=== PATIENT | female | born 2000 | race Caucasian/White ===

== ENCOUNTER 2020-07-24 21:37 | Emergency (ER) | payer OTHER ==
[~2020-07-24] VITALS: Ht 162.6 cm; Wt 118.0 kg
--- NOTE | 2020-07-24 21:53 | PHYS DOC ---
Past History Past Medical History: Depression Adult General HPI HPI Patient is a 19-year-old female who presents via EMS following suicide attempt by strangulation. Patient reports that she got into an argument with family members tonight prompting her to hit herself in the head with the palm of her gamez nd 5-10 times. She states that she did have dizziness at the time that she hit her head but this resolved shortly after. She subsequently wrapped both hands around her own neck and squeezed for several minutes. She then used the belt from a cloth robe, tying it around her neck for approximately 10 minutes and reports trying to suffocate herself for several minutes. After several minutes, her father heard her "gasping for air" and intervened. She denies loss of consciousness with any of these events. She currently complains of anterior neck pain and states that she tastes blood. She does report upper thoracic back pain but states that this is a chronic problem from a rollerblading accident. She does report a prior history of suicide attempt where she drank bleach. She also reports being noncompliant with her depression medication. She has known history of "bad bipolar " Review of Systems Review of Systems Fourteen body systems of review of systems have been reviewed. See HPI for pertinent positives and negative responses, other fabian all other systems are negative, non-pertinent or non-contributory Physical Exam Physical Exam Constitutional: Well developed, well nourished, no acute distress, non-toxic appearance. HENT: Normocephalic, atraumatic, bilateral external ears normal, oropharynx moist, no oral exudates, nose normal. Eyes: PERRLA, EOMI, conjunctiva normal, no discharge. Neck: Normal range of motion, no tenderness, supple, no stridor. Mild erythema noted to anterior neck likely from self-induced strangulation, no carotid bruits Cardiovascular: Heart rate regular, sinus rhythm, no murmurs rubs or gallops Lungs & Thorax: Bilateral breath sounds clear to auscultation Abdomen: Bowel sounds normal, soft, no tenderness, no masses, no pulsatile masses. Nonsurgical abdomen, no peritoneal signs Skin: Warm, dry, no erythema, no rash. Back: No tenderness, no CVA tenderness. Extremities: No tenderness, no cyanosis, no clubbing, ROM intact, no edema. Neurologic: Alert and oriented X 3, cranial nerves II through XII, normal motor & sensory function, no focal deficits noted. Psychologic: Affect normal, mood normal. Current Patient Data Vital Signs Vital Signs Date Time Temp Pulse Resp B/P (MAP) Pulse Ox O2 Delivery O2 Flow Rate FiO2 07/24/20 21:37 98.1 82 18 131/88 (102) 97 Room Air Lab Results Laboratory Tests Test 07/24/20 21:50 07/24/20 22:12 07/24/20 22:25 07/24/20 22:50 Urine Opiates Screen Neg Urine Methadone Screen Neg Urine Barbiturates Neg Urine Phencyclidine Screen Neg Urine Amphetamine/Methamphetamine Neg Urine Benzodiazepines Screen Neg Urine Cocaine Screen Neg Urine Cannabinoids Screen Neg Urine Ethyl Alcohol Neg Bedside Urine HCG, Qualitative hcg negative White Blood Count 14.1 x10^3/uL Red Blood Count 4.57 x10^6/uL Hemoglobin 13.4 g/dL Hematocrit 39.4 % Mean Corpuscular Volume 86 fL Mean Corpuscular Hemoglobin 29 pg Mean Corpuscular Hemoglobin Concent 34 g/dL Red Cell Distribution Width 14.1 % Platelet Count 411 x10^3/uL Neutrophils (%) (Auto) 75 % Lymphocytes (%) (Auto) 15 % Monocytes (%) (Auto) 7 % Eosinophils (%) (Auto) 1 % Basophils (%) (Auto) 1 % Neutrophils # (Auto) 10.6 x10^3uL Lymphocytes # (Auto) 2.2 x10^3/uL Monocytes # (Auto) 1.0 x10^3/uL Eosinophils # (Auto) 0.2 x10^3/uL Basophils # (Auto) 0.1 x10^3/uL Sodium Level 142 mmol/L Potassium Level 3.8 mmol/L Chloride Level 105 mmol/L Carbon Dioxide Level 25 mmol/L Anion Gap 12 Blood Urea Nitrogen 9 mg/dL Creatinine 0.8 mg/dL Estimated GFR (Cockcroft-Gault) 91.4 Glucose Level 99 mg/dL Calcium Level 9.4 mg/dL Salicylates Level < 2.8 mg/dL Salicylate Last Dose Date Unknown Salicylate Last Dose Time Unknown Acetaminophen Level < 2.0 mcg/mL Acetaminophen Last Dose Date Unknown Acetaminophen Last Dose Time Unknown Ethyl Alcohol Level < 10 mg/dL SARS-CoV-2 Antigen (Rapid) Negative Current Medications Medications (Trade) Dose Ordered Sig/Humberto Route PRN Reason Start Time Stop Time Status Last Admin Dose Admin Iohexol (Omnipaque 350 Mg/ml) 75 ml 1X ONCE IV 07/24/20 22:30 07/24/20 22:43 DC 07/24/20 22:30 EKG EKG EKG ordered and interpreted by myself at 2158 hrs. as sinus rhythm at 73 bpm, unremarkable intervals, no axis deviation, no acute ischemic findings, no STEMI Radiology/Procedures Radiology/Procedures PROCEDURE: CT ANGIOGRAPHY NECK CT head without contrast. CT cervical spine without contrast. CT angiography neck with contrast. PQRS statement: CT scans at this facility use dose reduction including either automated exposure control, iterative reconstructions, and /or weight based radiation dosing via mA and kV modification when appropriate to reduce radiation dose to as low as reasonably achievable. Stenosis calculations for CT, MR, and conventional angiography are based upon measurements of the distal ICA diameter in accordance with the NASCET methodology. Stenosis calculations for carotid ultrasound studies are derived from validated velocity criteria which are known to correlate with the NASCET methodology. HISTORY: Self strangulation attempt. Contrast: 75 mL Isovue-370 intravenous contrast. 3-D MIP reconstructions of the neck arteries were acquired. CT head findings: No intracranial hemorrhage, mass, hydrocephalus, extra-axial fluid collections or infarction. No acute ischemic changes. Orbits, mastoids and bones are unremarkable. IMPRESSION: Normal CT head. CT cervical spine findings: Craniocervical junction intact. Cervical vertebral body height and alignment intact. No fracture of the cervical spine. Uncovertebral spurring with mild neural foraminal stenoses C3-C4. Lung apices and paraspinal tissues are unremarkable. IMPRESSION: No acute osseous injury of the cervical spine. CTA neck findings: Left vertebral artery origin from the aortic arch. No ostial stenosis of the vessels from the aorta. No plaque, dissection, aneurysm, thrombus, stenosis or occlusion of the carotid and vertebral arteries in the neck. Bones and soft tissues of lung apices are unremarkable. Calcified granuloma right upper lobe apex. IMPRESSION: Normal CT angiography of the neck. Electronically signed by: Juancarlos Fisher MD (07/24/2020 11:54 PM) [facility] Heart Score C/O Chest Pain: No Risk Factors: Risk Factors: DM, Current or recent (<one month) smoker, HTN, HLP, family history of CAD, obesity. Risk Scores: Risk Factors: DM, Current or recent (<one month) smoker, HTN, HLP, family history of CAD, obesity. Course & Med Decision Making Course & Med Decision Making Hemodynamically stable patient with history concerning for self attempted strangulation. Physical exam grossly unremarkable. Comprehensive ER work-up performed and patient medically cleared PAT team subsequently contacted and independently evaluated patient, reviewed appropriate supporting documentation and previous available medical records and feels patient meets criteria for admission to mental health facility. I agree with this assessment Patient still pending inpatient psychiatric placement at time of my shift's end. Comprehensive signout given to oncoming physician. Please defer to their documentation for future care of patient while in our ER Dragon Disclaimer Dragon Disclaimer This electronic medical record was generated, in whole or in part, using a voice recognition dictation system. Departure Departure: Impression: Primary Impression: Intentional self-harm by strangulation Disposition: 65 DC/TRF TO PSYCH HOSP (see PAT notes) Admitting Physician: Other (see PAT notes) Condition: STABLE RUEL SOLANO DO Jul 24, 2020 21:53
[2020-07-24] MEDS ORDERED: IOHEXOL 350 MG/ML 100 ML VIAL. IV ONE (22:30)
[2020-07-24 22:34] LABS: BARBITURATES NEG (NEG); BENZODIAZEPINES NEG (NEG); CANNABINOIDS NEG (NEG); COCAINE NEG (NEG); METHADONE NEG (NEG); OPIATES NEG (NEG); PHENCYCLIDINE NEG (NEG)
[2020-07-24 22:36] LABS: AMPHETAMINE/METHAMPHETAMINE NEG (NEG)
[2020-07-24 22:57] LABS: BASO # 0.1 x10^3/uL (0.0-0.2); BASO % 1 % (0-3); EOS # 0.2 x10^3/uL (0.0-0.7); EOS % 1 % (0-3); HEMATOCRIT 39.4 % (36.0-47.0); HEMOGLOBIN 13.4 g/dL (12.0-15.5); LYMPH # 2.2 x10^3/uL (1.0-4.8); LYMPH % 15 % (24-48); MEAN CORPUSCULAR HEMOGLOBIN 29 pg (25-35); MEAN CORPUSCULAR HGB CONC 34 g/dL (31-37); MEAN CORPUSCULAR VOLUME 86 fL (79-100); MONO % 7 % (0-9); NEUT # 10.6 x10^3uL (1.8-7.7); NEUT % 75 % (31-73); PLATELET COUNT 411 x10^3/uL (140-400); RED BLOOD COUNT 4.57 x10^6/uL (3.50-5.40); RED CELL DISTRIBUTION WIDTH 14.1 % (11.5-14.5); WHITE BLOOD COUNT 14.1 x10^3/uL (4.0-11.0)
[2020-07-24 23:06] LABS: CALCIUM 9.4 mg/dL (8.5-10.1); CREATININE 0.8 mg/dL (0.6-1.0); GFR 91.4; POTASSIUM 3.8 mmol/L (3.5-5.1)
[2020-07-24 23:10] LABS: ACETAMIN < 2.0 mcg/mL (10-30); ETHANOL < 10 mg/dL (0-10); SALIC < 2.8 mg/dL (2.8-20.0)
--- NOTE | 2020-07-24 23:56 | RAD ---
CT head without contrast. CT cervical spine without contrast. CT angiography neck with contrast. PQRS statement: CT scans at this facility use dose reduction including either automated exposure cont rol, iterative reconstructions, and /or weight based radiation dosing via mA and kV modification when appropriate to reduce radiation dose to as low as reasonably achievable. Stenosis calculations for CT, MR, and conventional angiography are based upon measurements of the dis jason ICA diameter in accordance with the NASCET methodology. Stenosis calculations for carotid ultraso und studies are derived from validated velocity criteria which are known to correlate with the NASCET methodology. HISTORY: Self strangulation attempt. Contrast: 75 mL Isovue-370 intravenous contrast. 3-D MIP reconstructions of the neck arteries were ac quired. CT head findings: No intracranial hemorrhage, mass, hydrocephalus, extra-axial fluid collections or i nfarction. No acute ischemic changes. Orbits, mastoids and bones are unremarkable. IMPRESSION: Normal CT head. CT cervical spine findings: Craniocervical junction intact. Cervical vertebral body height and alignm ent intact. No fracture of the cervical spine. Uncovertebral spurring with mild neural foraminal sten oses C3-C4. Lung apices and paraspinal tissues are unremarkable. IMPRESSION: No acute osseous injury of the cervical spine. CTA neck findings: Left vertebral artery origin from the aortic arch. No ostial stenosis of the vesse ls from the aorta. No plaque, dissection, aneurysm, thrombus, stenosis or occlusion of the carotid an d vertebral arteries in the neck. Bones and soft tissues of lung apices are unremarkable. Calcified g ranuloma right upper lobe apex. IMPRESSION: Normal CT angiography of the neck. Electronically signed by: Juancarlos Fisher MD (07/24/2020 11:54 PM) [facility]
--- NOTE | 2020-07-25 00:11 | RAD ---
INDICATION: Shortness of breath after trauma. COMPARISON: None. FINDINGS: Single view of chest obtained. Hypoexpanded exam without definite focal consolidation or pulmonary edema. Cardiac silhouette is unre markable given portable technique. IMPRESSION: * No definite focal airspace consolidation. Electronically signed by: Hao Michaud MD (07/25/2020 12:09 AM) [id number]
--- NOTE | 2020-07-25 00:47 | EKG ---
[facility] ED [facility] [place] [id number] Test Date: 2020-07-24 Test Time: 21:57:16 Pat Name: BRANDY RODNEY Department: Room: Gender: F Joist Setter: : 2000 Requested By: RUEL SOLANO Order Number: [id number] Reading MD: Measurements Intervals [place] Rate: 73 P: 35 MA: 132 QRS: 75 QRSD: 76 T: 34 QT: 376 QTc: 418 Interpretive Statements SINUS RHYTHM LEFT ATRIAL ABNORMALITY ABNORMAL ECG RI6.02 No previous ECG available for comparison
[2020-07-25] MEDS ORDERED: hydrOXYzine HCL 10 MG TABLET PO PRN (01:00)
[2020-07-25] MEDS ORDERED: hydrOXYzine HCL 25 MG TABLET PO ONE (01:15)
[2020-07-25 10:27] LABS: BILIRUBIN,URINE NEG (NEG); CLARITY,URINE HAZY; COLOR,URINE YELLOW; GLUCOSE,URINE NEG (NEG); NITRITE,URINE NEG (NEG); UROBILINOGEN,URINE 0.2 mg/dL (0.2 mg/dL)
[2020-07-25 10:28] LABS: BACTERIA,URINE FEW /HPF (0-FEW); SQUAMOUS EPITHELIAL CELL,UR MOD /LPF
[2020-07-25 10:39] VITALS: BP 142/78
== END 2020-07-25 13:05 | disposition short-term general hospital (02) ==
LOC: ER 21:37
DX: R42 Dizziness and giddiness (principal); Z20.822 Contact with and (suspected) exposure to COVID-19; M54.6 Pain in thoracic spine; F32.9 Major depressive disorder, single episode, unspecified
CPT/HCPCS: 36415; 70450; 70498; 71045; 72125; 80048; 80307; 80329; 81001; 81025; 85025; 87086; 87426; 93005; 99285; C9803; G0480; Q9967; U0003

== ENCOUNTER 2021-07-29 09:34 | Emergency (ER) | payer OTHER ==
[~2021-07-29] VITALS: Ht 162.6 cm; Wt 88.2 kg
[2021-07-29 10:21] LABS: BASO % 0 % (0-3); EOS # 0.2 x10^3/uL (0.0-0.7); EOS % 2 % (0-3); HEMATOCRIT 39.4 % (36.0-47.0); HEMOGLOBIN 13.5 g/dL (12.0-15.5); LYMPH % 19 % (24-48); MEAN CORPUSCULAR HEMOGLOBIN 30 pg (25-35); MEAN CORPUSCULAR HGB CONC 34 g/dL (31-37); MEAN CORPUSCULAR VOLUME 89 fL (79-100); MONO # 0.8 x10^3/uL (0.0-1.1); MONO % 8 % (0-9); NEUT # 7.3 x10^3uL (1.8-7.7); NEUT % 71 % (31-73); PLATELET COUNT 351 x10^3/uL (140-400); RED BLOOD COUNT 4.45 x10^6/uL (3.50-5.40); RED CELL DISTRIBUTION WIDTH 13.5 % (11.5-14.5); WHITE BLOOD COUNT 10.3 x10^3/uL (4.0-11.0)
--- NOTE | 2021-07-29 10:21 | PHYS DOC ---
Past History Past Medical History: Depression Additional Past Medical Histor: SI, RULE OUT DIAGNOSIS OF SCHIZOPHERNIA Past Surgical History: Other Additional Past Surgical Histo: DENTAL Alcohol Use: None Adult General Chief Complaint Chief Complaint: SUICIDAL IDEATION HPI HPI Patient is a 20-year-old female presenting to the emergency department for evaluation of suicidal ideation with intentional overdose at midnight last night she took 4 to 6 pills of both 500 mg ciprofloxacin and 4 mg of ondansetron. She did this at approximately midnight and she thinks she vomited 2 to 3 minutes after taking them but did not see any pill fragments. Patient says that she feels jittery and anxious but denies any other medical complaints at this time. It appears that she wrote a suicide note. She is upset that her father was trying to kick her out of the house. She is in no acute distress with normal vital signs. Review of Systems Review of Systems Constitutional: Denies fever or chills [] Eyes: Denies change in visual acuity, redness, or eye pain [] HENT: Denies nasal congestion or sore throat [] Respiratory: Denies cough or shortness of breath [] Cardiovascular: No additional information not addressed in HPI [] GI: Denies abdominal pain, nausea, vomiting, bloody stools or diarrhea [] : Denies dysuria or hematuria [] Musculoskeletal: Denies back pain or joint pain [] Integument: Denies rash or skin lesions [] Neurologic: Denies headache, focal weakness or sensory changes [] All other systems were reviewed and found to be within normal limits, except as documented in this note. Allergies Allergies Allergies Coded Allergies Type Severity Reaction Last Updated Verified No Known Drug Allergies 07/24/20 No Physical Exam Physical Exam Constitutional: Well developed, well nourished, no acute distress, non-toxic appearance. [] HENT: Normocephalic, atraumatic, bilateral external ears normal, oropharynx moist, no oral exudates, nose normal. [] Eyes: PERRLA, EOMI, conjunctiva normal, no discharge. [] Neck: Normal range of motion, no tenderness, supple, no stridor. [] Cardiovascular:Heart rate regular rhythm, no murmur [] Lungs & Thorax: Bilateral breath sounds clear to auscultation [] Abdomen: Bowel sounds normal, soft, no tenderness, no masses, no pulsatile masses. [] Skin: Warm, dry, no erythema, no rash. [] Back: No tenderness, no CVA tenderness. [] Extremities: No tenderness, no cyanosis, no clubbing, ROM intact, no edema. [] Neurologic: Alert and oriented X 3, normal motor function, normal sensory function, no focal deficits noted. [] Current Patient Data Vital Signs Vital Signs Date Time Temp Pulse Resp B/P (MAP) Pulse Ox O2 Delivery O2 Flow Rate FiO2 07/29/21 09:34 98.5 85 16 125/78 (94) 99 Room Air EKG EKG Normal sinus rhythm at 74 bpm with normal axis no deviation no ST elevation or depression and normal intervals. Radiology/Procedures Radiology/Procedures [] Heart Score C/O Chest Pain: No Risk Factors: Risk Factors: DM, Current or recent (<one month) smoker, HTN, HLP, family history of CAD, obesity. Risk Scores: Risk Factors: DM, Current or recent (<one month) smoker, HTN, HLP, family history of CAD, obesity. Course & Med Decision Making Course & Med Decision Making Patient is medically cleared for my perspective I will get psychiatric screening labs and have the PAT team see patient. PAT team has assessed patient and will try to find inpatient facility while waiting for the COVID test that will take 24 hours to come back is a cannot place anyone without a Covid PCR which [facility] does not have available in house. Patient's final disposition plan is pending, I will transfer care to Dr. Barr at shift change at 1800. Dragon Disclaimer Dragon Disclaimer This electronic medical record was generated, in whole or in part, using a voice recognition dictation system. Departure Departure: Impression: Primary Impression: Intentional overdose Additional Impression: Suicidal ideation Condition: STABLE Referrals: LEAH NGUYEN MD (PCP) Problem Qualifiers Primary Impression: Intentional overdose Encounter type: initial encounter Qualified Codes: T50.902A - Poisoning by unspecified drugs, medicaments and biological substances, intentional self- harm, initial encounter KVNG STORM DO Jul 29, 2021 10:21
[2021-07-29 10:29] LABS: CALCIUM 8.6 mg/dL (8.5-10.1); CREATININE 0.7 mg/dL (0.6-1.0); GFR 105.6; POTASSIUM 3.2 mmol/L (3.5-5.1)
[2021-07-29 10:30] LABS: BACTERIA,URINE MOD /HPF (0-FEW); CLARITY,URINE CLOUDY; COLOR,URINE YELLOW; GLUCOSE,URINE NEG (NEG); NITRITE,URINE NEG (NEG); SQUAMOUS EPITHELIAL CELL,UR MANY /LPF; UROBILINOGEN,URINE 0.2 mg/dL (0.2 mg/dL)
[2021-07-29 10:34] LABS: ACETAMIN < 2.0 mcg/mL (10-30); ETHANOL < 10 mg/dL (0-10); SALIC 0.6 mg/dL (2.8-20.0)
[2021-07-29 10:36] LABS: ALBUMIN 3.5 g/dL (3.4-5.0); ALBUMIN/GLOBULIN RATIO 0.9 (1.0-1.7); TOTAL BILIRUBIN 0.6 mg/dL (0.2-1.0); TOTAL PROTEIN 7.2 g/dL (6.4-8.2)
[2021-07-29] MEDS ORDERED: POTASSIUM CHLORIDE 20 MEQ TABLET.ER. PO ONE (11:15)
[2021-07-29] MEDS ORDERED: IV NORMAL SALINE 1,000ML 1,000 ML IV ONE (12:00)
--- NOTE | 2021-07-29 12:12 | EKG ---
[address] [address] Test Date: 2021-07-29 Test Time: 09:56:12 Pat Name: BRANDY RODNEY Department: Room: Gender: F Addiction Social Worker: LANE : 2000 Requested By: KVNG STORM Order Number: [id number] Reading MD: Lc Koenig MD Measurements Intervals [place] Rate: 75 P: 48 NH: 144 QRS: 88 QRSD: 84 T: 35 QT: 390 QTc: 438 Interpretive Statements SINUS ARRHYTHMIA Electronically Signed On 07-31-2021 7:01:04 CDT by Lc Koenig MD
[2021-07-29 13:36] LABS: AMPHETAMINE/METHAMPHETAMINE NEG (NEG); BARBITURATES NEG (NEG); BENZODIAZEPINES NEG (NEG); CANNABINOIDS NEG (NEG); COCAINE NEG (NEG); METHADONE NEG (NEG); OPIATES NEG (NEG); PHENCYCLIDINE NEG (NEG)
[2021-07-29] MEDS ORDERED: ONDANSETRON PF 4 MG/2 ML VIAL. IV ONE (16:45)
[2021-07-29] MEDS ORDERED: ACETAMINOPHEN 500 MG TABLET PO ONE (23:00)
[2021-07-30 03:29] VITALS: BP 115/60
== END 2021-07-30 03:30 | disposition home or self-care (01) ==
LOC: ER 09:34 → EEVIPCON 09:34 → ER 07-30 03:30
DX: T36.8X2A Poisoning by other systemic antibiotics, intentional self-harm, initial encounter (principal); T45.0X2A Poisoning by antiallergic and antiemetic drugs, intentional self-harm, initial encounter; R45.851 Suicidal ideations; F32.9 Major depressive disorder, single episode, unspecified; Z20.822 Contact with and (suspected) exposure to COVID-19; Y92.89 Other specified places as the place of occurrence of the external cause
CPT/HCPCS: 36415; 80053; 80307; 80329; 81001; 85025; 87086; 93005; 96361; 96374; 99285; G0480; J2405; J7030; U0003

== ENCOUNTER 2021-09-09 23:07 | Emergency (ER) | payer OTHER ==
[~2021-09-09] VITALS: Ht 162.6 cm; Wt 86.4 kg
[2021-09-09 23:18] VITALS: BP 128/71
--- NOTE | 2021-09-09 23:50 | PHYS DOC ---
Past History Past Medical History: Depression Additional Past Medical Histor: SI, RULE OUT DIAGNOSIS OF SCHIZOPHERNIA Past Surgical History: No Surgical History Additional Past Surgical Histo: DENTAL Alcohol Use: None General Adult EDM: Chief Complaint: SUICIDAL IDEATION HPI: HPI: 20-year-old female presents after suicide attempt. The patient took several pills from 3 different prescription bottles at 9 PM. The patient does not know how many pills were in each bottle. She was having some sort of argument with her father and started thinking about suicide. As when she took these pills. Review of Systems: Review of Systems: Constitutional: Denies fever or chills Eyes: Denies change in visual acuity HENT: Denies nasal congestion or sore throat Respiratory: Denies cough or shortness of breath Cardiovascular: Denies chest pain or edema GI: Denies abdominal pain, nausea, vomiting, bloody stools or diarrhea : Denies dysuria Musculoskeletal: Denies back pain or joint pain Integument: Denies rash Neurologic: Denies headache, focal weakness or sensory changes Endocrine: Denies polyuria or polydipsia Lymphatic: Denies swollen glands Psychiatric: Depression, suicide attempt. Allergies: Allergies: Allergies Coded Allergies Type Severity Reaction Last Updated Verified No Known Drug Allergies 07/24/20 No Physical Exam: PE: Constitutional: Well developed, well nourished, obese, no acute distress, non- toxic appearance. [] HENT: Normocephalic, atraumatic, bilateral external ears normal, oropharynx moist, no oral exudates, nose normal. [] Eyes: PERRLA, EOMI, conjunctiva normal, no discharge. [] Neck: Normal range of motion, no tenderness, supple, no stridor. [] Cardiovascular: Heart rate regular rhythm, no murmur [] Lungs & Thorax: Bilateral breath sounds clear to auscultation [] Abdomen: Bowel sounds normal, soft, no tenderness, no masses, no pulsatile masses. [] Skin: Warm, dry, no erythema, no rash. [] Back: No tenderness, no CVA tenderness. [] Extremities: No tenderness, no cyanosis, no clubbing, ROM intact, no edema. [] Neurologic: Alert and oriented X 3, normal motor function, normal sensory function, no focal deficits noted. [] Psychologic: Affect flat, judgement impaired, mood depressed. [] Current Patient Data: Vital Signs: Vital Signs Date Time Temp Pulse Resp B/P (MAP) Pulse Ox O2 Delivery O2 Flow Rate FiO2 09/09/21 23:18 98.0 73 20 128/71 (90) 97 Room Air EKG: EKG: [] Radiology/Procedures: Radiology/Procedures: [] Heart Score: C/O Chest Pain: N/A Risk Factors: Risk Factors: DM, Current or recent (<one month) smoker, HTN, HLP, family history of CAD, obesity. Risk Scores: Score 0 - 3: 2.5% MACE over next 6 weeks - Discharge Home Score 4 - 6: 20.3% MACE over next 6 weeks - Admit for Clinical Observation Score 7 - 10: 72.7% MACE over next 6 weeks - Early Invasive Strategies Course & Med Decision Making: Course & Med Decision Making Pertinent Labs and Imaging studies reviewed. (See chart for details) The patient's labs are unremarkable. One of the medications the patient states that she took his Ativan. There is significant question as to whether the patient took any of these medications. The other pill bottles would not have contain toxic doses. Her urine drug screen does not show benzodiazepines. It is negative for other substances. Her other toxicology is negative. The patient has been evaluated by behavioral health. The doubt whether the patient took these medications as well. She has done this in the past. She is mad at her father's living situation. The very real team believes the patient can be discharged with a safety plan. I am in agreement. She is stable for discharge at this time. [] Dragon Disclaimer: Dragon Disclaimer: This electronic medical record was generated, in whole or in part, using a voice recognition dictation system. Departure Departure: Impression: Primary Impression: Suicidal ideation Disposition: HOME / SELF CARE / HOMELESS Condition: STABLE Referrals: LEAH NGUYEN MD (PCP) Patient Instructions: Suicidal Feelings, How to Help Yourself VALENTE ENRIQUEZ DO September 09, 2021 23:49
[2021-09-09 23:55] LABS: BASO # 0.1 x10^3/uL (0.0-0.2); BASO % 1 % (0-3); EOS # 0.3 x10^3/uL (0.0-0.7); EOS % 2 % (0-3); HEMATOCRIT 37.4 % (36.0-47.0); HEMOGLOBIN 12.6 g/dL (12.0-15.5); LYMPH # 2.5 x10^3/uL (1.0-4.8); LYMPH % 19 % (24-48); MEAN CORPUSCULAR HEMOGLOBIN 30 pg (25-35); MEAN CORPUSCULAR HGB CONC 34 g/dL (31-37); MEAN CORPUSCULAR VOLUME 89 fL (79-100); MONO # 0.8 x10^3/uL (0.0-1.1); MONO % 7 % (0-9); NEUT # 9.1 x10^3uL (1.8-7.7); NEUT % 72 % (31-73); PLATELET COUNT 377 x10^3/uL (140-400); RED BLOOD COUNT 4.21 x10^6/uL (3.50-5.40); RED CELL DISTRIBUTION WIDTH 13.4 % (11.5-14.5); WHITE BLOOD COUNT 12.7 x10^3/uL (4.0-11.0)
[2021-09-10] MEDS ORDERED: IV NORMAL SALINE 1,000ML 1,000 ML IV ONE
[2021-09-10 00:02] LABS: AMPHETAMINE/METHAMPHETAMINE NEG (NEG); BARBITURATES NEG (NEG); BENZODIAZEPINES NEG (NEG); CANNABINOIDS NEG (NEG); COCAINE NEG (NEG); METHADONE NEG (NEG); OPIATES NEG (NEG); PHENCYCLIDINE NEG (NEG)
[2021-09-10 00:09] LABS: BACTERIA,URINE FEW /HPF (0-FEW); CLARITY,URINE CLEAR; COLOR,URINE YELLOW; GLUCOSE,URINE NEG (NEG); NITRITE,URINE NEG (NEG); SQUAMOUS EPITHELIAL CELL,UR MOD /LPF; UROBILINOGEN,URINE 0.2 mg/dL (0.2 mg/dL)
[2021-09-10 00:10] LABS: CALCIUM 9.3 mg/dL (8.5-10.1); CREATININE 0.5 mg/dL (0.6-1.0); GFR 155.7; POTASSIUM 3.9 mmol/L (3.5-5.1)
[2021-09-10 00:16] LABS: ALBUMIN 3.5 g/dL (3.4-5.0); ALBUMIN/GLOBULIN RATIO 1.2 (1.0-1.7); TOTAL BILIRUBIN 0.3 mg/dL (0.2-1.0); TOTAL PROTEIN 6.4 g/dL (6.4-8.2)
[2021-09-10 01:03] LABS: ACETAMIN < 2.0 mcg/mL (10-30); SALIC 0.9 mg/dL (2.8-20.0)
--- NOTE | 2021-09-10 03:17 | EKG ---
[address] [address] Test Date: 2021-09-10 Test Time: 00:03:11 Pat Name: BRANDY RODNEY Department: Room: Gender: F Career Counselor: JUDE : 2000 Requested By: VALENTE ENRIQUEZ Order Number: [id number] Reading MD: Lc Koenig MD Measurements Intervals [place] Rate: 68 P: 33 UT: 136 QRS: 64 QRSD: 84 T: 29 QT: 396 QTc: 421 Interpretive Statements SINUS RHYTHM Electronically Signed On 09-10-2021 8:50:02 CDT by Lc Koenig MD
== END 2021-09-10 01:42 | disposition home or self-care (01) ==
LOC: ER 23:07
DX: T50.992A Poisoning by other drugs, medicaments and biological substances, intentional self-harm, initial encounter (principal); R45.851 Suicidal ideations; F32.9 Major depressive disorder, single episode, unspecified; Z20.822 Contact with and (suspected) exposure to COVID-19; Y92.89 Other specified places as the place of occurrence of the external cause
CPT/HCPCS: 36415; 80053; 80307; 80329; 81001; 83605; 85025; 87086; 87426; 93005; 96360; 99285; C9803; J7030; U0003; G0480